=== PATIENT | male | born 1975 | race Caucasian/White ===

== ENCOUNTER 2019-02-28 22:55 | Emergency (ER) | payer SELFPAY ==
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
[2019-02-28] MEDS ORDERED: Bacitracin 1 PK ONE (23:41)
== END 2019-03-01 00:07 ==
LOC: NAV ERS 22:55
DX: S50.812A Abrasion of left forearm, initial encounter (principal); S50.811A Abrasion of right forearm, initial encounter; F10.129 Alcohol abuse with intoxication, unspecified; F43.10 Post-traumatic stress disorder, unspecified; E78.5 Hyperlipidemia, unspecified; E78.00 Pure hypercholesterolemia, unspecified; I10 Essential (primary) hypertension; F41.9 Anxiety disorder, unspecified; F17.210 Nicotine dependence, cigarettes, uncomplicated; Z79.899 Other long term (current) drug therapy; V43.52XA Car driver injured in collision with other type car in traffic accident, initial encounter
CPT/HCPCS: 71045; 72125